=== PATIENT | female | born 1975 | race Caucasian/White ===

== ENCOUNTER 2019-08-06 19:46 | Emergency (ER) | payer MEDICAID ==
[~2019-08-06] VITALS: Ht 162.6 cm; Wt 72.7 kg
[2019-08-06 19:53] VITALS: Ht 162.6 cm; Wt 72.7 kg
[2019-08-06] MEDS ORDERED: NAPROSYN500 MG PO (21:26)
[2019-08-06 21:41] VITALS: BP 121/71
== END 2019-08-06 21:41 | disposition home or self-care (01) ==
LOC: D.ER 19:46
DX: S89.91XA Unspecified injury of right lower leg, initial encounter (principal); X58.XXXA Exposure to other specified factors, initial encounter